=== PATIENT | male | born 1990 | race American Indian/Alaskan Native ===

== ENCOUNTER 2021-05-20 06:11 | Day surgery (SDC) | payer MEDICARE ==
[~2021-05-20 06:11] MED LIST: ceFAZolin/Water 2 GM/20 ML 2 GM/20 ML SYRINGE IV NR
[2021-05-20] MEDS ORDERED: LACTATED RINGERS 1,000 ML ONE (06:12)
[2021-05-20] MEDS ORDERED: HYDROmorphone 1 MG/1 ML INJ IV PRN ×2 (07:23→07:30)
[2021-05-20] MEDS ORDERED: LIDOCAINE (1%) 10 MG/1 ML VIAL 20 ML MDV ONE (07:23)
[2021-05-20] MEDS ORDERED: BUPIVACAINE/PF (0.5%) 5 MG/1 ML 30 ML VIAL INFILTRATI ONE ×2 (07:24→08:40)
[2021-05-20] MEDS ORDERED: LIDOCAINE 1%/EPINEPHRINE 1:100,000 VIAL (20 ML) INFILTRATI ONE (07:24)
--- NOTE | 2021-05-20 07:24 | Anesthesia Day of Surgery ---
Anesthesia Day of Surgery - Day of Surgery Patient Examined: Yes Patient H&P Reviewed: Yes Patient is NPO: Yes
--- NOTE | 2021-05-20 07:25 | Anesthesia Consultation ---
Anesthesia Consult and Med Hx Date of service: 05/20/21 - Airway Anesthetic Teeth Evaluation: Partials ROM Head & Neck: Adequate Mental/Hyoid Distance: Adequate Mallampati Class: Class II Intubation Access Assessment: Good - Pre-Operative Health Status ASA Pre-Surgery Classification: ASA3 Proposed Anesthetic Plan: MAC (GA if needed) - Pulmonary Hx Smoking: No Hx Sleep Apnea: No (REMIGIO PRE SCREEN LOW RISK) - Cardiovascular System Hx Hypertension: No - Central Nervous System Hx Neuromuscular Disorder: Yes (R-sided weakness) Hx Seizures: Yes (LAST SEIZURE 2020) Hx Psychiatric Problems: Yes (Limited verbal use; unable to carry conversation) - Hematic Hx Anemia: No - Other Systems Hx Cancer: No
[2021-05-20] MEDS ORDERED: propofoL 200 MG/20 ML VIAL IV ONE ×2 (07:26→08:01)
[2021-05-20] MEDS ORDERED: fentaNYL 100 MCG/2 ML INJ ONE (07:26)
[2021-05-20] MEDS ORDERED: LIDOCAINE MPF (2%) 20 MG/1 ML VIAL 5 ML ONE (07:26)
[2021-05-20] MEDS ORDERED: ONDANSETRON 4 MG/2 ML INJ IV PRN (07:30)
[2021-05-20] MEDS ORDERED: LACTATED RINGERS 1,000 ML IV SCH (07:30)
[2021-05-20] MEDS ORDERED: MIDAZOLAM 2 MG/2 ML INJ ONE (07:43)
[2021-05-20] MEDS ORDERED: BACITRACIN ZINC OINT 28.4 GM TP ONE ×2 (08:15→08:43)
[2021-05-20] MEDS ORDERED: dexAMETHasone 20 MG/5 ML VIAL ONE (08:20)
[2021-05-20] MEDS ORDERED: dexAMETHasone 20 MG/5 ML VIAL IM ONE (08:40)
[2021-05-20] MEDS ORDERED: LIDOCAINE (1%) 10 MG/1 ML VIAL 20 ML MDV INFILTRATI ONE (08:40)
[2021-05-20] MEDS ORDERED: SODIUM CHLORIDE 0.9% IRR 1,500 ML BOTTLE IR ONE (08:41)
--- NOTE | 2021-05-20 10:30 | XRay Report ---
RIGHT TOES 2 VIEWS INDICATION: Post op. COMPARISON: None. IMPRESSION: Surgical changes are noted involving the proximal phalanx of the fifth toe. Correlate wi th history. The bony structures are otherwise intact and unremarkable. No joint pathology is appreci ated. Signer Name: Armaan Nieves Jr, MD Signed: 05/20/2021 10:25 AM Workstation Name: [id number]
[2021-05-20 11:18] VITALS: BP 116/86
--- NOTE | 2021-05-20 16:06 | Post Anesthesia Evaluation ---
- Post Anesthesia Evaluation Patient Participated: Yes Airway Patent: Yes Stable Respiratory Function: Yes Nausea/Vomiting: No Temp > 96.8F: Yes Pain Manageable: Yes Adequeate Hydration: Yes Anesthesia Complications: No Block Receding Appropriately: Not Applicable Patient on Ventilator: No
--- NOTE | 2021-05-21 04:46 | Operative Report ---
DATE OF SURGERY: 05/20/2021 PREOPERATIVE DIAGNOSIS: Painful varus, fifth digit, right foot. POSTOPERATIVE DIAGNOSIS: Painful varus, fifth digit, right foot. SURGICAL PROCEDURE: Arthroplasty with derotation, fifth digit, right foot. ANESTHESIA: Monitored anesthesia care with local sedation. TOURNIQUET: Pneumatic ankle tourniquet, right ankle. ESTIMATED BLOOD LOSS: Less than 5 mL. DESCRIPTION OF PROCEDURE: The patient was brought into the operating room and placed on the operating table in supine position. Following intravenous sedation, the patient was given 2 grams of Ancef prophylactically. At this time, 4 mL of a 1:1 mixture of 0.5% Marcaine and 1% lidocaine plain was infiltrated into the fifth digit after cleansing with alcohol wipe. At this time, a well-padded pneumatic ankle tourniquet was placed 2-3 cm proximal to both the medial and lateral malleoli. At this time, the foot was then scrubbed, prepped and draped in the usual aseptic manner. An Esmarch was used to exsanguinate the foot and tourniquet was inflated to 250 mmHg. At this time, attention was directed to a varus rotated fifth digit with hyperkeratotic lesion at the proximal interphalangeal joint. At this time, after adequately identifying hyperkeratotic tissue, two semi-converging elliptical incisions was made at the proximal interphalangeal joint with a distal apex dorsal medial and the proximal apex proximal lateral and plantar. This ellipse of tissue incorporated the hyperkeratotic tissue, which was passed from the operative field and at this time, deep dissection with a transverse tenotomy and capsulotomy of the proximal interphalangeal joint was performed with a 10 blade. At this time, a 15 blade was used to further dissect and identify a prominent proximal interphalangeal joint head, which was removed from the surgical neck with a sagittal saw. It should be noted the middle phalanx dorsal and laterally was burred with a rotating football bur and contoured with rotating football david at the head of the shaft of the proximal phalanx. At this time, the area was flushed copiously with normal sterile saline. Toe was derotated and deep closure was performed with 5-0 Vicryl followed by running subcuticular stitch with a 4-0 Prolene. 3 mL of dexamethasone phosphate was infiltrated into the fracture site. The toe was dressed with bacitracin ointment, Adaptic and sterile compressive dressing. Pneumatic ankle tourniquet was deflated. There was a prompt hyperemic response to all digits of the affected foot. The patient will be transferred to recovery and discharged home with both written and oral postoperative instructions. TID: [id number] RECEIPT: [id number] NAZIA/KIM/EDWIN
== END 2021-05-20 10:10 | disposition home or self-care (01) ==
LOC: OR 06:11
PROVIDERS: ATTEND Podiatrist Foot & Ankle Surgery
DX: M21.171 Varus deformity, not elsewhere classified, right ankle (principal); M20.5X1 Other deformities of toe(s) (acquired), right foot; Z20.822 Contact with and (suspected) exposure to COVID-19; Z79.899 Other long term (current) drug therapy; Z98.890 Other specified postprocedural states
CPT/HCPCS: 28285; 73660; J0690; J1100; J2250; J2405; J2704; J3010; J3490; J7120; U0003